=== PATIENT | female | born 1970 | race Caucasian/White ===

== ENCOUNTER → 2023-01-22 | Day surgery (SDC) | payer OTHER ==
--- NOTE | 2023-01-23 20:53 | RAD REPORT ---
EXAM DESCRIPTION: US - Follow Up [facility] - 01/22/2023 11:11 am CLINICAL HISTORY: ICD R92.8. Patient presented for a right breast biopsy. COMPARISON: December 31, 2022 ultrasound. FINDINGS: On the current ultrasound the previously described 2.4 cm mass within the 5 o'clock positi on of the right breast has more of the appearance of fibroglandular tissue. I also examined the patie nt with ultrasound and could not re-demonstrate a mass in this region. IMPRESSION: 1. No mass was visualized 5 o'clock position right breast on ultrasound on today's exam. Almost certainly this represents normal fibroglandular tissue. 1. Consequently a biopsy could not be performed. 2. It is recommended that the patient have a follow-up right breast ultrasound in 6 months to re-eval uate this area. 3. BI-RADS category 3, probably benign. 4. I a discussed with the results with the patient. BI-RAD: 3 ResultCode: PB6
== END ==
LOC: DS 10:14
PROVIDERS: ATTEND Surgery
DX: R92.8 Other abnormal and inconclusive findings on diagnostic imaging of breast (principal); Z53.8 Procedure and treatment not carried out for other reasons
CPT/HCPCS: 76642

== ENCOUNTER 2024-05-16 20:00 | Emergency (ER) | payer OTHER ==
[2024-05-16] MEDS ORDERED: FAMOTIDINE 20 MG/2 ML VIAL IV ONE (20:51)
[2024-05-16] MEDS ORDERED: MORPHINE 4 MG/ML SYR ONE (20:51)
[2024-05-16] MEDS ORDERED: ONDANSETRON 4 MG/2 ML VIAL ONE (20:51)
[2024-05-16 20:57] LABS: Absolute Basophils 0.1 K/uL (0-0.5); Absolute Eosinophils 0.2 K/uL (0-0.5); Absolute Lymphocytes (CBC) 2.3 K/uL (0.7-4.9); Absolute Monocytes 1.1 K/uL (0.1-1.3); Absolute Neutrophil 5.8 K/uL (1.8-8.0); Eosinophils % 1.8 % (0-4.4); Hematocrit 40.1 % (36.0-45.0); Hemoglobin 13.5 g/dL (12.0-15.0); Lymphocytes % 24.7 % (15.3-44.8); MCH 30.7 pg (27.0-35.0); MCHC 33.7 g/dL (32.0-36.0); MCV 90.9 fL (80-100); MPV 7.1 fL (7.6-11.3); Monocytes % 11.3 % (3.3-12.3); Neutrophils % 61.2 % (41.7-73.7); Platelets 361 thou/uL (152-406); RBC Red Blood Cell Count 4.42 M/uL (3.86-4.86); Red Cell Distribution Width 13.8 % (12.1-15.2)
[2024-05-16 20:58] LABS: PT Prothrombin Time 12.3 SECONDS (9.4-12.5); Protime INR 1.1
--- NOTE | 2024-05-16 21:02 | RAD REPORT ---
EXAMINATION: ONE VIEW CHEST XR CLINICAL INDICATION: Female, 53 years old.CHEST PAIN TECHNIQUE: 1 View, AP supine, X-ray of the chest was performed. [id number]. COMPARISON: 03/23/2016 FINDINGS: Lungs and pleura: Clear lungs. No effusion. Heart and mediastinum: Normal heart size. Unremarkable mediastinal contours. Osseous structures: No acute abnormality. Tubes/lines: None Other: None. IMPRESSION: No acute intrathoracic abnormality.
[2024-05-16 21:14] LABS: ALT/SGPT 22 U/L (13-56); AST/SGOT 18 U/L (15-37); Albumin 3.3 g/dL (3.4-5.0); Alkaline Phosphatase 60 U/L (45-117); Anion Gap 6.2 mEq/L (5.0-15.0); BUN Blood Urea Nitrogen 13 mg/dL (7-18); Bicarbonate 29 mEq/L (21-32); Bilirubin Direct < 0.2 mg/dL (0-0.2); Bilirubin Indirect, Calculated 0.2 mg/dL (0.2-0.8); Bilirubin Total 0.4 mg/dL (0.2-1.0); Globulin 3.2 g/dL (2.3-3.5); Glomerular Filtration Rate 76 ml/min (=/>90); Glucose Level 89 mg/dL (74-106); Lipase 37 U/L (13-75); Magnesium 2.2 mg/dL (1.6-2.4); Potassium 3.2 mEq/L (3.5-5.1); Protein, Total 6.5 g/dL (6.4-8.2); Sodium Level 141 mEq/L (136-145); Troponin High Sensitivity 4.7 pg/mL (<58.9)
[2024-05-16] MEDS ORDERED: ASPIRIN 81 MG CHEWABLE TABLET ONE (22:49)
[2024-05-16] MEDS ORDERED: POTASSIUM 25 MEQ EFFERV TAB ONE (22:50)
--- NOTE | 2024-05-17 00:09 | EDPHYS ---
Physician Documentation [facility] Name: Vandana Uribe Age: 53 yrs Sex: Female : 1970 Arrival Date: 05/16/2024 Time: 20:00 Bed 4 Private MD: ED Physician Drew Jimenez HPI: 05/16 20:30 This 53 yrs old Female presents to ER via Ambulatory with complaints of Chest Pain, cp Epigastric Pain. 20:30 The patient or guardian reports chest pain that is located primarily in the substernal cp area, epigastric area. 20:30 Onset: 1 week(s) ago. The pain does not radiate. Associated signs and symptoms: cp Pertinent positives: nausea, vomiting, Pertinent negatives: cough, shortness of breath, syncope, vomiting. The chest pain is described as like someone sitting on chest. Severity of pain: in the emergency department the pain is unchanged despite home interventions. APPLIQUER ZIGZAG: 05/17 00:33 LMP N/A - Post-menopause, Not dd2 Historical: - Allergies: 05/16 20:14 Doxycycline; tm6 - PMHx: 20:14 Hypothyroidism; tm6 - PSHx: 20:14 Total abdominal hysterectomy; Cholecystectomy; tummy tuck; tm6 - Immunization history:: Client reports receiving the 2nd dose of the Covid vaccine. - Infectious Disease History:: Denies. - Social history:: Smoking status: Patient denies any tobacco usage or history of. Patient/guardian denies using alcohol. ROS: 20:33 Cardiovascular: Positive for chest pain, of the mid chest, cp 20:33 Constitutional: Negative for body aches, chills, fever, poor PO intake, cp 20:33 Eyes: Negative for injury, pain, redness, and discharge, cp 20:33 ENT: Negative for drainage from ear(s), ear pain, sore throat, difficulty swallowing, difficulty handling secretions, 20:33 Respiratory: Negative for cough, shortness of breath, wheezing, 20:33 Abdomen/GI: Positive for nausea and vomiting, Negative for abdominal pain, diarrhea, constipation, active vomiting, 20:33 Back: Negative for pain at rest, pain with movement, radiated pain, 20:33 : Negative for urinary symptoms, 20:33 Neuro: Negative for altered mental status, dizziness, headache, weakness, 20:33 All other systems are negative, Exam: 20:22 ECG was reviewed by the Attending Physician. cp 20:35 Constitutional: The patient appears in no acute distress, alert, awake, cp non-diaphoretic, non-toxic, well developed, well nourished, uncomfortable, 20:35 Head/Face: Normocephalic, atraumatic. cp 20:35 Eyes: Periorbital structures: appear normal, Conjunctiva: normal, no exudate, no injection, Sclera: no appreciated abnormality, Lids and lashes: appear normal, bilaterally, 20:35 ENT: External ear(s): are unremarkable, Nose: is normal, Mouth: Lips: moist, Oral mucosa: pink and intact, moist, Posterior pharynx: is normal, airway is patent, no erythema, no exudate, 20:35 Neck: ROM/movement: is normal, is supple, without pain, no range of motions limitations, 20:35 Chest/axilla: Inspection: normal, 20:35 Cardiovascular: Rate: bradycardic, Rhythm: regular, Edema: is not appreciated, JVD: is not appreciated, 20:35 Respiratory: the patient does not display signs of respiratory distress, Respirations: normal, no use of accessory muscles, no retractions, labored breathing, is not present, Breath sounds: are clear throughout, no decreased breath sounds, no stridor, no wheezing, 20:35 Abdomen/GI: Inspection: abdomen appears normal, Bowel sounds: active, all quadrants, Palpation: soft, in all quadrants, moderate abdominal tenderness, in the epigastric area, rebound tenderness, is not appreciated, no appreciated organomegaly, 20:35 Back: CVA tenderness, is absent, 20:35 Neuro: Orientation: to person, place \T\ time. Mentation: is normal, Motor: moves all fours, strength is normal, Sensation: is normal, 23:55 ECG was reviewed by the Attending Physician. cp Vital Signs: 20:13 BP 141 / 83; Pulse 66; Resp 19; Temp 97.5(O); Pulse Ox 97% on R/A; MAP 98 mmHg; Weight tm6 79.38 kg; Height 5 ft. 5 in. ; Pain 6/10; 20:30 BP 130 / 86; Pulse 55; Resp 16; Pulse Ox 99% on R/A; al5 21:00 BP 128 / 87; Pulse 54; Resp 14; Pulse Ox 96% on R/A; al5 21:30 BP 139 / 85; Pulse 50; Resp 14; Pulse Ox 97% on R/A; al5 22:00 BP 123 / 78; Pulse 50; Resp 14; Pulse Ox 97% on R/A; al5 22:30 BP 123 / 78; Pulse 50; Resp 14; Pulse Ox 99% on R/A; al5 22:37 BP 131 / 85 LA; Pulse 59; Resp 13; Pulse Ox 98% on R/A; al5 22:39 BP 127 / 78 RA; Pulse 55; Resp 14; Pulse Ox 100% on R/A; al5 23:00 BP 122 / 77; Pulse 53; Resp 13; Pulse Ox 99% on R/A; al5 05/17 00:11 BP 109 / 81; Pulse 53; Resp 16; Pulse Ox 99% ; dd2 05/16 20:13 Body Mass Index 29.12 (79.38 kg, 165.1 cm) tm6 05/16 20:13 Pain Scale: Adult tm6 MDM: 05/16 20:16 Medical Screening Exam initiated cp 05/17 00:08 Data reviewed: vital signs, nurses notes, lab test result(s), EKG, radiologic studies, cp plain films, and as a result, I will discharge patient. 00:08 The patient was given aspirin in the Emergency Department. Consideration of cp Admission/Observation Escalation of care including admission/observation considered. I considered the following discharge prescriptions or medication management in the emergency department Medications were administered in the Emergency Department. See MAR. Independent interpretation of the following test(s) in the Emergency Department EKG: See my EKG interpretation above. Counseling: I had a detailed discussion with the patient and/or guardian regarding the historical points, exam findings, and any diagnostic results supporting the discharge/admit diagnosis, radiology results, the need for outpatient follow up, a mortgage collector, to return to the emergency department if symptoms worsen or persist or if there are any questions or concerns that arise at home. Response to treatment: the patient's symptoms have markedly improved after treatment. ED course: VSS. Discussed negative initial and repeat troponin, EKGs that were negative for STEMI. Patient has seen DR Sepulveda, mortgage collector, in the past and would like to f/u outpatient. Patient understands she can return at any time for reevaluation. 05/16 20:32 Order name: Basic Metabolic Panel; Complete Time: 21:52 cp 05/16 21:52 Interpretation: Normal except: K 3.2; CL 109; GFR 76. cp 05/16 20:32 Order name: CBC with Diff; Complete Time: 21:52 cp 05/16 20:32 Order name: LFT's; Complete Time: 21:52 cp 05/16 20:32 Order name: Magnesium; Complete Time: 21:52 cp 05/16 20:32 Order name: PT-INR; Complete Time: 21:52 cp 05/16 20:32 Order name: Troponin HS; Complete Time: 21:52 cp 05/16 20:32 Order name: Lipase; Complete Time: 21:52 cp 05/16 23:32 Order name: Troponin High Sensitivity; Complete Time: 00:07 cp 05/17 00:07 Interpretation: Reviewed. cp 05/16 20:32 Order name: XRAY Chest (1 view); Complete Time: 21:52 cp 05/16 21:53 Interpretation: Report review. cp 05/16 20:32 Order name: Cardiac monitoring; Complete Time: 20:40 cp 05/16 20:32 Order name: EKG - Nurse/Tech; Complete Time: 20:40 cp 05/16 20:32 Order name: IV Saline Lock; Complete Time: 21:03 cp 05/16 20:32 Order name: Labs collected and sent; Complete Time: 21:03 cp 05/16 20:32 Order name: O2 Per Protocol; Complete Time: 20:40 cp 05/16 20:32 Order name: O2 Sat Monitoring; Complete Time: 20:40 cp 05/16 22:08 Order name: Blood Pressure Recheck: bilateral upper extremity; Complete Time: 22:54 cp 05/16 23:32 Order name: EKG - Nurse/Tech; Complete Time: 00:01 cp EC/20 20:22 Rate is 68 beats/min. Rhythm is regular. MO interval is normal. QRS interval is normal. cp QT interval is normal. T waves are Inverted in lead aVR. Interpreted by me. Reviewed by me. 23:55 Rate is 54 beats/min. Rhythm is regular. MO interval is normal. QRS interval is normal. cp QT interval is normal. T waves are Inverted in lead aVR. Interpreted by me. Reviewed by me. Administered Medications: 21:03 Drug: morphine IVP or IV 4 mg IVP once over 4 mins Route: IVP; Infused Over: 4 mins; al5 Site: right antecubital; 22:54 Follow up: Response: No adverse reaction; Pain is decreased al5 21:04 Drug: Ondansetron IVP 4 mg IVP once; over 2 minutes Route: IVP; Site: right antecubital;al5 22:55 Follow up: Response: No adverse reaction al5 21:04 Drug: Famotidine IVP 20 mg IVP once; dilute with 10 mL 0.9% NaCl; give over 2 minutes al5 Route: IVP; Site: right antecubital; 22:55 Follow up: Response: No adverse reaction; Pain is decreased al5 22:54 Drug: Aspirin PO Chewable Tablet 324 mg PO once; 81 mg tablets x 4 Route: PO; al5 23:24 Follow up: Response: No adverse reaction dd2 22:54 Drug: Potassium PO Effervescent Tablet 50 mEq PO once; dissolve in 4 ounces of water or al5 juice Route: PO; 23:40 Follow up: Response: No adverse reaction al5 23:40 Follow up: Response: No adverse reaction al5 Disposition: 23:27 I was immediately available on-site in the Emergency Department for consultation in the ms3 care of the patient. Disposition Summary: 05/17/24 00:08 Discharge Ordered Notes: Location: Home cp Problem: new cp Symptoms: have improved cp Condition: Stable cp Diagnosis - Chest pain, unspecified cp Followup: cp - With: Private Physician - When: 2 - 3 days - Reason: Recheck today's complaints Discharge Instructions: - Discharge Summary Sheet cp - Nonspecific Chest Pain, Adult cp - Aspirin and Your Heart cp Forms: - Medication Reconciliation Form cp - Antibiotic Education cp - Prescription Opioid Use cp - Patient Portal Instructions cp - Leadership Thank You Letter cp Prescriptions: - Pepcid 20 mg Oral Tablet - take 1 tablet ORAL route every 12 hours for 10 days; 20 tablet; Refills: 0, cp Product Selection Permitted Signatures: Dispatcher [employer] EDMS Poncho Henderson PA PA cp Drew Jimenez DO DO ms3 Elvia Casas RN RN tm6 Narcisa Pardo RN RN al5 GAMALIEL DAVIS RN dd2 Corrections: (The following items were deleted from the chart) 20:15 20:14 Allergies: No Known Allergies; tm6 tm6 20:33 20:33 BASIC METABOLIC PANEL+C.LAB.BRZ ordered. EDMS EDMS 20:33 20:33 CBC+H.LAB.BRZ ordered. EDMS EDMS 20:33 20:33 HEPATIC FUNCTION+C.LAB.BRZ ordered. EDMS EDMS 20:33 20:33 MAGNESIUM+C.LAB.BRZ ordered. EDMS EDMS 20:33 20:33 PROTIME (+INR)+COAG.LAB.BRZ ordered. EDMS EDMS 20:33 20:33 Troponin High Sensitivity+C.LAB.BRZ ordered. EDMS EDMS 20:33 20:33 LIPASE+C.LAB.BRZ ordered. EDMS EDMS 20:33 20:33 Chest Single View+RAD.RAD.BRZ ordered. EDMS EDMS
--- NOTE | 2024-05-17 00:09 | ER ---
Nurse's Notes [facility] Name: Vandana Uribe Age: 53 yrs Sex: Female : 1970 Arrival Date: 05/16/2024 Time: 20:00 Bed 4 Private MD: Diagnosis: Chest pain, unspecified Presentation: 05/16 20:13 Chief complaint: Patient states: chest pain and RUQ pain x1 week. Has n/v. Coronavirus tm6 screen: Client denies travel out of the [place] in the last 14 days. Ebola Screen: Patient negative for fever greater than or equal to 101.5 degrees Fahrenheit, and additional compatible Ebola Virus Disease symptoms Patient denies exposure to infectious person. Patient denies travel to an Ebola-affected area in the 21 days before illness onset. No symptoms or risks identified at this time. Initial Sepsis Screen: Does the patient meet any 2 criteria? No. Patient's initial sepsis screen is negative. Does the patient have a suspected source of infection? No. Patient's initial sepsis screen is negative. Risk Assessment: Do you want to hurt yourself or someone else? Patient reports no desire to harm self or others. Onset of symptoms was May 09, 2024. 20:13 Method Of Arrival: Ambulatory tm6 20:13 Acuity: JIAN 3 tm6 Triage Assessment: 20:14 General: Appears in no apparent distress. Behavior is calm, cooperative. Pain: tm6 Complains of pain in chest and right upper quadrant Pain currently is 6 out of 10 on a pain scale. at worst was 8 out of 10 on a pain scale. EENT: No signs and/or symptoms were reported regarding the EENT system. Neuro: Level of Consciousness is awake, alert, obeys commands, Oriented to person, place, time, situation. Cardiovascular: Reports chest pain, nausea, Patient's skin is warm and dry. Respiratory: Airway is patent Respiratory effort is even, unlabored, Respiratory pattern is regular, symmetrical. GI: Abdomen is flat, non-distended, Reports upper abdominal pain, nausea, vomiting. : No signs and/or symptoms were reported regarding the genitourinary system. Derm: No signs and/or symptoms reported regarding the dermatologic system. Musculoskeletal: No signs and/or symptoms reported regarding the musculoskeletal system. 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 - Infectious Disease History:: Denies. - Social history:: Smoking status: Patient denies any tobacco usage or history of. Patient/guardian denies using alcohol. Screenin:21 [facility] ED Fall Risk Assessment (Adult) History of falling in the last 3 months, al5 including since admission No falls in past 3 months (0 pts) Confusion or Disorientation No (0 pts) Intoxicated or Sedated No (0 pts) Impaired Gait No (0 pts) Mobility Assist Device Used No (0 pt) Altered Elimination No (0 pt) Score/Fall Risk Level 0 - 2 = Low Risk Oriented to surroundings, Maintained a safe environment, Hourly rounding (assess needs \T\ fall precautionary measures) done. Abuse screen: Denies threats or abuse. Denies injuries from another. Nutritional screening: No deficits noted. Tuberculosis screening: No symptoms or risk factors identified. Assessment: 21:22 General: Appears in no apparent distress. Behavior is calm, cooperative. Pain: al5 Complains of pain in chest Pain radiates to right upper quadrant Pain began 1 week. Neuro: Level of Consciousness is awake, alert, obeys commands, Oriented to person, place, time, situation. Cardiovascular: Capillary refill < 3 seconds Patient's skin is warm and dry. Rhythm is sinus rhythm. Respiratory: Airway is patent Respiratory effort is even, unlabored, Respiratory pattern is regular, symmetrical. GI: Abdomen is flat, non-distended. : No signs and/or symptoms were reported regarding the genitourinary system. EENT: No signs and/or symptoms were reported regarding the EENT system. Derm: Skin is intact, Skin is pink, warm \T\ dry. normal. Musculoskeletal: No signs and/or symptoms reported regarding the musculoskeletal system. 22:57 Reassessment: Patient appears in no apparent distress at this time. No changes from al5 previously documented assessment. Patient is alert, oriented x 3, equal unlabored respirations, skin warm/dry/pink. Patient states symptoms have improved. Vital Signs: 20:13 BP 141 / 83; Pulse 66; Resp 19; Temp 97.5(O); Pulse Ox 97% on R/A; MAP 98 mmHg; Weight tm6 79.38 kg; Height 5 ft. 5 in. ; Pain 6/10; 20:30 BP 130 / 86; Pulse 55; Resp 16; Pulse Ox 99% on R/A; al5 21:00 BP 128 / 87; Pulse 54; Resp 14; Pulse Ox 96% on R/A; al5 21:30 BP 139 / 85; Pulse 50; Resp 14; Pulse Ox 97% on R/A; al5 22:00 BP 123 / 78; Pulse 50; Resp 14; Pulse Ox 97% on R/A; al5 22:30 BP 123 / 78; Pulse 50; Resp 14; Pulse Ox 99% on R/A; al5 22:37 BP 131 / 85 LA; Pulse 59; Resp 13; Pulse Ox 98% on R/A; al5 22:39 BP 127 / 78 RA; Pulse 55; Resp 14; Pulse Ox 100% on R/A; al5 23:00 BP 122 / 77; Pulse 53; Resp 13; Pulse Ox 99% on R/A; al5 05/17 00:11 BP 109 / 81; Pulse 53; Resp 16; Pulse Ox 99% ; dd2 05/16 20:13 Body Mass Index 29.12 (79.38 kg, 165.1 cm) tm6 05/16 20:13 Pain Scale: Adult tm6 ED Course: 05/16 20:02 Patient arrived in ED. im 20:11 Poncho Henderson PA is PHCP. cp 20:11 Drew Jimenez DO is Attending Physician. cp 20:14 Triage completed. tm6 20:14 Arm band placed on right wrist. tm6 20:40 Narcisa Pardo, AISHA is Primary Nurse. al5 20:59 XRAY Chest (1 view) In Process Unspecified. EDMS 21:21 Patient has correct armband on for positive identification. Placed in gown. Bed in low al5 position. Call light in reach. Side rails up X2. Provided Education on: plan of care. Client placed on continuous cardiac and pulse oximetry monitoring. NIBP monitoring applied. engine monitor on. 21:22 No provider procedures requiring assistance completed. Inserted saline lock: 20 gauge al5 in right antecubital area, using aseptic technique. Blood collected. Flushed with 10 mL NS. Patient maintains SpO2 saturation greater than 95% on room air. 23:40 Troponin High Sensitivity Sent. al5 05/17 00:01 EKG done, by ED staff. vk 00:32 IV discontinued, intact, bleeding controlled, No redness/swelling at site. Pressure dd2 dressing applied. Administered Medications: 05/16 21:03 Drug: morphine IVP or IV 4 mg IVP once over 4 mins Route: IVP; Infused Over: 4 mins; al5 Site: right antecubital; 22:54 Follow up: Response: No adverse reaction; Pain is decreased al5 21:04 Drug: Ondansetron IVP 4 mg IVP once; over 2 minutes Route: IVP; Site: right antecubital;al5 22:55 Follow up: Response: No adverse reaction al5 21:04 Drug: Famotidine IVP 20 mg IVP once; dilute with 10 mL 0.9% NaCl; give over 2 minutes al5 Route: IVP; Site: right antecubital; 22:55 Follow up: Response: No adverse reaction; Pain is decreased al5 22:54 Drug: Aspirin PO Chewable Tablet 324 mg PO once; 81 mg tablets x 4 Route: PO; al5 23:24 Follow up: Response: No adverse reaction dd2 22:54 Drug: Potassium PO Effervescent Tablet 50 mEq PO once; dissolve in 4 ounces of water or al5 juice Route: PO; 23:40 Follow up: Response: No adverse reaction al5 23:40 Follow up: Response: No adverse reaction al5 Medication: 22:57 VIS not applicable for this client. al5 Outcome: 05/17 00:08 Discharge ordered by . jez 00:32 Discharged to home ambulatory, dd2 00:32 Condition: stable 00:32 Discharge instructions given to patient, significant other, Instructed on discharge instructions, follow up and referral plans. medication usage, Demonstrated understanding of instructions, follow-up care, medications, Prescriptions given X 1, 00:34 Patient left the ED. dd2 Signatures: Dispatcher [employer] EDUT Poncho Henderson PA PA cp Mendoza, Itzel im Masterson, Tawney RN RN tm6 Brisa Meza Amanda, RN RN al5 GAMALIEL DAVIS RN RN dd2 Corrections: (The following items were deleted from the chart) 05/16 20:15 20:14 Allergies: No Known Allergies; tm6 tm6
[2024-05-17 04:48] VITALS: TEMP 97.5
[2024-05-17 04:57] VITALS: O2SAT 99
[2024-05-17 04:59] VITALS: BP 109/81
--- NOTE | 2024-05-18 12:55 | EKG ---
Test Date: 2024-05-16 Test Time: 20:16:22 Watch Engine Operator: JORDAN MEASUREMENT RESULTS: Intervals: Rate: 68 GA: 172 QRSD: 86 QT: 404 QTc: 429 [place]: P: 50 GA: 172 QRS: 30 T: 60 INTERPRETIVE STATEMENTS: Normal sinus rhythm Normal ECG Compared to ECG 03/22/2016 23:28:17 Sinus bradycardia no longer present Electronically Signed On 05-18-24 12:50:55 CDT by Mickey Orozco
--- NOTE | 2024-05-18 12:55 | EKG ---
Test Date: 2024-05-16 Test Time: 23:49:29 Cloth Dyeing Range Tender: ALEXY MEASUREMENT RESULTS: Intervals: Rate: 54 IA: 166 QRSD: 84 QT: 432 QTc: 409 [place]: P: 42 IA: 166 QRS: 40 T: 44 INTERPRETIVE STATEMENTS: Sinus bradycardia Otherwise normal ECG Compared to ECG 05/16/2024 20:16:22 Sinus rhythm no longer present Electronically Signed On 05-18-24 12:50:48 CDT by Mickey Orozco
== END 2024-05-17 00:34 | disposition home or self-care (01) ==
LOC: ER 20:00
DX: R07.9 Chest pain, unspecified (principal); R10.13 Epigastric pain
CPT/HCPCS: 93005 ×2; 85025; 80048; 36415; 83735; 85610; 80076; 84484 ×2; 83690; 71045; 96375; 96374; 99285; J2405